=== PATIENT | male | born 1985 | race Caucasian/White ===

== ENCOUNTER 2017-12-09 09:40 | Day surgery (SDC) | payer SELFPAY ==
[~2017-12-09] VITALS: Ht 177.8 cm; Wt 68.1 kg
[2017-12-09 11:05] VITALS: BP 109/74; PULSE 70; TEMP 98
[2017-12-09] MEDS ORDERED: DILANTIN 100MG100 MG PO (11:22)
[2017-12-09 15:09] VITALS: TEMP 97.3
[2017-12-09 15:35] VITALS: BP 119/50; PULSE 64
[2017-12-09 15:50] VITALS: BP 118/61; PULSE 64
[2017-12-09 16:05] VITALS: BP 130/81; PULSE 52
== END 2017-12-09 16:30 | disposition home or self-care (01) ==
LOC: SDCO 09:40
DX: C62.92 Malignant neoplasm of left testis, unspecified whether descended or undescended (principal); N50.89 Other specified disorders of the male genital organs; G40.909 Epilepsy, unspecified, not intractable, without status epilepticus; Z87.891 Personal history of nicotine dependence; Z80.9 Family history of malignant neoplasm, unspecified
CPT/HCPCS: J0690; J1100; J1885; J2405; J2704; J3010; J7120